=== PATIENT | male | born 1965 | race Caucasian/White ===

== ENCOUNTER 2017-09-22 13:24 | Emergency (ER) | payer BC ==
--- NOTE | 2017-09-22 14:27 | ED ---
Skin Complaint - HPI Summary HPI Summary: Patient is a 51-year-old male who presents emergency department for evaluation of insect bite to his right arm that occurred roughly one week ago. Patient states he was outside mowing the grass as well as [place] a walk in the [place] last week when he noticed redness and itching to his right arm. Matias, more red and irritating. Past medical history of diabetes, high cholesterol, hypertension. Patient is not aware of any tick bites recently. Symptoms are mild in severity. Denies associated symptoms of fever, joint pain. He states he has tried using topical Benadryl and hydrocortisone cream for itching with minimal relief. - History of Current Complaint Chief Complaint: EDRashSkinAbscess Time Seen by Provider: 09/22/17 13:44 Stated Complaint: RT ARM BUG BITE Hx Obtained From: Patient Pain Intensity: 0 - Allergy/Home Medications Allergies/Adverse Reactions: Allergies Allergy/AdvReac Type Severity Reaction Status Date / Time No Known Allergies Allergy Verified 09/22/17 13:29 PMH/Surg Hx/FS Hx/Imm Hx Previously Healthy: Yes Infectious Disease History: No Infectious Disease History: Denies: Traveled Outside the [place] in Last 30 Days - Social History Occupation: Employed Full-time Lives: With Family Review of Systems Constitutional: Negative Negative: Fever, Chills Positive: Other - Rash to right arm. All Other Systems Reviewed And Are Negative: Yes Physical Exam Triage Information Reviewed: Yes Vital Signs On Initial Exam: Initial Vitals Temp Pulse Resp BP Pulse Ox 96.7 F 74 16 141/94 97 09/22/17 13:30 09/22/17 13:30 09/22/17 13:30 09/22/17 13:30 09/22/17 13:30 Vital Signs Reviewed: Yes Appearance: Positive: Well-Appearing - Pt. sitting in chair in NAD. Skin: Positive: Warm, Dry, Other - Noted to the right antecubital region of arm there is a roughly 6-7 cm area diameter of erythema with central clearing. No fluctuance or induration. No skin necrosis. Musculoskeletal: Positive: Other - Full ROM of right elbow without pain or edema. No overlying erythema. Diagnostics - Vital Signs Vital Signs Temp Pulse Resp BP Pulse Ox 09/22/17 13:30 96.7 F 74 16 141/94 97 - Laboratory Lab Statement: Any lab studies that have been ordered have been reviewed, and results considered in the medical decision making process. Course/Dx - Course Course Of Treatment: Patient presenting with palpable saline secondary to insect bite. There is no abscess or induration. Patient is afebrile. There is central clearing to lesion. Lyme titer was drawn. Will treat with doxycycline. Advised patient to schedule a close follow-up appointment with his family doctor. To return to the ER for increased redness, swelling, fever or if concerned. Can take [id number] antihistamines for itching. Patient understands and agrees with plan. - Diagnoses Provider Diagnoses: Insect bite, Cellulitis Discharge - Sign-Out/Discharge Documenting (check all that apply): Discharge/Admit/Transfer - Discharge Plan Condition: Good Disposition: HOME Prescriptions: DOXYcycline CAP(*) [DOXYcycline 100MG CAP(*)] 100 mg PO BID #20 cap Patient Education Materials: Cellulitis (ED), Insect Bite or Sting (ED) Referrals: Sandra Lyon MD [Primary Care Provider] - Additional Instructions: Schedule a follow up appointment with PCP in 2-3 days Take antibiotic as directed Apply cool compresses Can take oral antihistamine for itching such as Zyrtec, Ruby Will call if Lyme test is positive Return to ER for increased redness, swelling, drainage, fever or if concerned - Billing Disposition and Condition Condition: GOOD Disposition: Home
[2017-09-22 14:41] VITALS: BP 139/95
== END 2017-09-22 14:41 | disposition home or self-care (01) ==
LOC: ED 13:24
DX: S40.861A Insect bite (nonvenomous) of right upper arm, initial encounter (principal); L03.113 Cellulitis of right upper limb; W57.XXXA Bitten or stung by nonvenomous insect and other nonvenomous arthropods, initial encounter
CPT/HCPCS: 86617; 99282

== ENCOUNTER 2018-11-16 18:04 | Emergency (ER) | payer BC, OTHER ==
[2018-11-16] MEDS ORDERED: Labetalol IV* 5 MG/ML 20 ML VIAL IV PUSH ONE (18:37)
--- NOTE | 2018-11-16 18:40 | ED ---
HPI Chest Pain - HPI Summary HPI Summary: 53-year-old male presents with chest pain today. He states he had this pain starting on left side of chest. States that radiates to his left shoulder. He describes it as an ache. No shortness breath. No cough. No recent illness. No abdominal pain. No nausea or vomiting. No diaphoresis. Has history of diabetes and high blood pressure. Took 4 aspirins of 325 mg today which helped with the pain. He also states that he had this pain on Sunday while he was at work. - History of Current Complaint Chief Complaint: EDChestWallPain Time Seen by Provider: 11/16/18 18:27 Pain Intensity: 6 - Allergy/Home Medications Allergies/Adverse Reactions: Allergies Allergy/AdvReac Type Severity Reaction Status Date / Time No Known Allergies Allergy Verified 09/22/17 13:29 Home Medications: Home Medications Aspirin 325 mg PO DAILY PRN 11/16/18 [History Confirmed 11/16/18] Atorvastatin* [Lipitor*] 20 mg PO QPM 11/16/18 [History Confirmed 11/16/18] Lisinopril 10 mg PO DAILY 11/16/18 [History Confirmed 11/16/18] Metformin HCl 500 mg PO BID 11/16/18 [History Confirmed 11/16/18] PMH/Surg Hx/FS Hx/Imm Hx Endocrine/Hematology History: Reports: Hx Diabetes Denies: Hx Anticoagulant Therapy Cardiovascular History: Reports: Hx Hypertension Infectious Disease History: No Infectious Disease History: Denies: Traveled Outside the [place] in Last 30 Days - Family History Known Family History: Positive: Hypertension - Social History Alcohol Use: Rare Substance Use Type: Reports: None Smoking Status (MU): Never Smoked Tobacco Review of Systems Negative: Fever Positive: Chest Pain. Negative: Palpitations Negative: Shortness Of Breath, Cough All Other Systems Reviewed And Are Negative: Yes Physical Exam Triage Information Reviewed: Yes Vital Signs On Initial Exam: Initial Vitals Temp Pulse Resp BP Pulse Ox 97.7 F 68 18 180/122 100 11/16/18 18:08 11/16/18 18:08 11/16/18 18:08 11/16/18 18:08 11/16/18 18:08 Vital Signs Reviewed: Yes Appearance: Positive: Well-Appearing Skin: Positive: Warm, Dry Head/Face: Positive: Normal Head/Face Inspection Eyes: Positive: Normal, Conjunctiva Clear ENT: Positive: Pharynx normal Respiratory/Lung Sounds: Positive: Clear to Auscultation, Breath Sounds Present , Other - tenderness chest wall Cardiovascular: Positive: Normal, RRR Abdomen Description: Positive: Nontender, Soft Bowel Sounds: Positive: Present Musculoskeletal: Positive: Normal Neurological: Positive: Normal Psychiatric: Positive: Normal Diagnostics - Vital Signs Vital Signs Temp Pulse Resp BP Pulse Ox 11/16/18 18:08 97.7 F 68 18 180/122 100 - Laboratory Result Diagrams: 11/16/18 18:38 11/16/18 18:38 Lab Statement: Any lab studies that have been ordered have been reviewed, and results considered in the medical decision making process. - EKG No standard instances Cardiac Rate: NL EKG Rhythm: Sinus Rhythm Summary of EKG Findings: sinus rhythm Re-Evaluation - Re-Evaluation First Eval Re-Evaluation Time: 19:54 Comment: blood pressure decreased but still has pain that describes as soreness and is reproducible. Second Eval Re-Evaluation Time: 22:08 Comment: states still having chest wall pain Chest Pain Course/Dx - Course Course Of Treatment: 53-year-old male presents with chest pain today. He states he had this pain starting on left side of chest. States that radiates to his left shoulder. He describes it as an ache. No shortness breath. No cough. No recent illness. No abdominal pain. No nausea or vomiting. No diaphoresis. Has history of diabetes and high blood pressure. Took 4 aspirins of 325 mg today which helped with the pain. He also states that he had this pain on Sunday while he was at work. On exam lungs CTA. Heart regular rhythm. Tenderness to palpation. EKG shows sinus rhythm. wbc normal. Troponin normalx2. d-dimer normal. gave nitro and bp dec but still have reproducible chest pain that describes as soreness. heart score 3. discussed needs to follow up with primary. as symptoms are reproducible and did not improve with nitro likely muscular in nature. told if develop any worsening symptoms to return. patient understand and agrees with plan. - Diagnoses Provider Diagnoses: Atypical chest pain Discharge - Sign-Out/Discharge Documenting (check all that apply): Patient Departure Patient Received Moderate/Deep Sedation with Procedure: No - Discharge Plan Condition: Good Disposition: HOME Patient Education Materials: Chest Pain (ED) Referrals: Sandra Lyon MD [Primary Care Provider] - Additional Instructions: follow up with primary within 5 days Take tyenlol every 6 hours as needed for pain Return to ED if develop worsening chest pain, shortness of breath, or any new or worsening symptoms - Billing Disposition and Condition Condition: GOOD Disposition: Home - Attestation Statements Provider Attestation: I am administratively signing this document. I was available for consultation for this patient. I did not evaluate the patient, did not have a doctor/patient relationship with the patient, or participate in any medical decision making or disposition decisions unless I am specifically named in the chart as having consulted on the patient. If I have consulted on the patient, please see my own ED note on the patient encounter. Shereen Rivas MD
[2018-11-16 18:51] LABS: ABS Basophils 0.1 10^3/ul (0-0.2); ABS Eosinophils 0.2 10^3/ul (0-0.6); ABS Lymphocytes 2.1 10^3/ul (1.0-4.8); ABS Monocytes 0.5 10^3/ul (0-0.8); Eosinophil % 2.3 %; Hematocrit 42 % (42-52); Hemoglobin 14.5 g/dL (14.0-18.0); Mean Corpuscular HGB Conc 35 g/dL (31-36); Mean Corpuscular Hemoglobin 32 pg (27-31); Mean Corpuscular Volume 91 fL (80-94); Mean Platelet Volume 7.5 fL (7.4-10.4); Nucleated Red Blood Cells % 0.1; Platelet Count 300 10^3/uL (150-450); Red Blood Count 4.56 10^6 /uL (4.18-5.48); Red Cell Distribution Width 13 % (10-15); White Blood Count 8.9 10^3/uL (3.5-10.8)
[2018-11-16 19:06] LABS: Albumin 4.7 g/dL (3.2-5.2); Albumin/Globulin Ratio 1.8 (1-3); BUN/Creatinine Ratio 20.7 (8-20); Calcium 8.9 mg/dL (8.6-10.3); EGFR African American 110.6 (>60); EGFR Non-African American 91.4 (>60); Globulin 2.6 g/dL (2-4); Potassium 4.1 mmol/L (3.5-5.0); Total Protein 7.3 g/dL (6.4-8.9)
[2018-11-16] MEDS ORDERED: Nitroglycerin TAB 0.4 MG* 0.4 MG TAB SL ONE (19:08)
[2018-11-16 22:22] VITALS: BP 136/92
== END 2018-11-16 22:20 | disposition home or self-care (01) ==
LOC: ED 18:04
DX: R07.89 Other chest pain (principal); E11.9 Type 2 diabetes mellitus without complications; I10 Essential (primary) hypertension; Z79.84 Long term (current) use of oral hypoglycemic drugs; Z79.82 Long term (current) use of aspirin; Z79.899 Other long term (current) drug therapy
CPT/HCPCS: 36415; 71045; 80053; 80329; 83605; 83880; 84484; 85025; 85379; 93005; 96374; 99283; A9270-GY; G0480

== ENCOUNTER 2019-02-01 16:58 | Emergency (ER) | payer OTHER ==
--- NOTE | 2019-02-01 17:16 | ED ---
Throat Pain/Nasal Congestion - HPI Summary HPI Summary: This patient is a 53 year old M with a history of type 2 DM presenting to ED with a chief complaint of sore throat since two days ago. Patient started feeling poorly with coughing since the beginning of December. Then, patient saw a nurse practitioner at [facility] and was given nasal steroids and Flonase. Patient reports he lost his voice a week later for three weeks. He went back and was prescribed Amoxicillin but still was not getting better. He was then prescribed Prednisone and doxycycline on 01/15/19 and he got his voice back about a week after that. Now, the patient is still coughing terribly and now has the sore throat. He reports nasal congestion. Patient does not smoke. He denies ear pain. The patient rates the pain 0/10 in severity. Symptoms aggravated by nothing. Symptoms alleviated by nothing. - History of Current Complaint Chief Complaint: EDUpperRespComplaint Time Seen by Provider: 02/01/19 17:07 Hx Obtained From: Patient Onset/Duration: Gradual Onset, Lasting Days - Since two days ago, Lasting Weeks - Coughing illness since beginning , Still Present Severity: Mild Associated Signs And Symptoms: Positive: Sinus Discomfort Cough: Nonproductive - Allergies/Home Medications Allergies/Adverse Reactions: Allergies Allergy/AdvReac Type Severity Reaction Status Date / Time No Known Allergies Allergy Verified 02/01/19 17:04 PMH/Surg Hx/FS Hx/Imm Hx Endocrine/Hematology History: Reports: Hx Diabetes Denies: Hx Anticoagulant Therapy Cardiovascular History: Reports: Hx Hypertension - Surgical History Surgery Procedure, Year, and Place: Denies Infectious Disease History: No Infectious Disease History: Denies: Traveled Outside the [place] in Last 30 Days - Family History Known Family History: Positive: Hypertension - Social History Alcohol Use: Rare Hx Substance Use: No Substance Use Type: Reports: None Hx Tobacco Use: No Smoking Status (MU): Never Smoked Tobacco Review of Systems ENT: Other - Nasal congestion Positive: Sore Throat. Negative: Ear Ache Positive: Cough All Other Systems Reviewed And Are Negative: Yes Physical Exam - Summary Physical Exam Summary: Appearance: The patient is well-nourished in no acute distress and in no acute pain. Skin: The skin is warm and dry, and skin color reflects adequate perfusion. HEENT: Mild pharyngeal edema, Neck: Mild anterior cervical lymphadenopathy Respiratory: Chest is non-tender. Lungs are clear to auscultation and breath sounds are symmetrical and equal. Cardiovascular: Heart is regular rate and rhythm. There is no murmur or rub auscultated. There is no peripheral edema and pulses are symmetrical and equal. Abdomen: The abdomen is soft and non-tender. There are normal bowel sounds heard in all four quadrants and there is no organomegaly palpated. Musculoskeletal: There is no back tenderness noted. Extremities are non-tender with full range of motion. There is good capillary refill. There is no peripheral edema or calf tenderness elicited. Neurological: Patient is alert and oriented to person, place and time. The patient has symmetrical motor strength in all four extremities. Cranial nerves are grossly intact. Deep tendon reflexes are symmetrical and equal in all four extremities. Psychiatric: The patient has an appropriate affect and does not exhibit any anxiety or depression. Triage Information Reviewed: Yes Vital Signs On Initial Exam: Initial Vitals Temp Pulse Resp BP Pulse Ox 96.8 F 76 14 132/92 99 02/01/19 17:00 02/01/19 17:00 02/01/19 17:00 02/01/19 17:00 02/01/19 17:00 Vital Signs Reviewed: Yes Procedures - Sedation Patient Received Moderate/Deep Sedation with Procedure: No Diagnostics - Vital Signs Vital Signs Temp Pulse Resp BP Pulse Ox 02/01/19 17:00 96.8 F 76 14 132/92 99 - Laboratory Lab Statement: Any lab studies that have been ordered have been reviewed, and results considered in the medical decision making process. Re-Evaluation - Re-Evaluation First Eval Re-Evaluation Time: 18:25 Comment: Discussed results with patient. Patient will be discharged home with dx of bronchitis. Patient understands and agrees with this plan. EENT Course/Dx - Course Course Of Treatment: Mr. Woodward complaining that he's been sick for a couple of months. The only thing that made him feel improved were steroids that he was given by his PCP. His workup here was negative and he is requesting an additional steroid burst. He followed his blood sugars closely on the previous burst and had no problems. - Diagnoses Provider Diagnoses: Bronchitis Discharge ED - Sign-Out/Discharge Documenting (check all that apply): Patient Departure - Discharge - Discharge Plan Condition: Stable Disposition: HOME Prescriptions: methylPREDNISolone [Medrol Dosepak 4 MG*] 0 mg PO .SEE CORBY INSTRUCTION #1 corby Patient Education Materials: Chronic Bronchitis (ED) Forms: *Work Release Referrals: Sandra Lyon MD [Primary Care Provider] - 3 Days Additional Instructions: Follow up with your primary care physician within 2-3 days. PLEASE RETURN TO THE ER FOR WORSENING OR CHANGING SYMPTOMS. - Billing Disposition and Condition Condition: STABLE Disposition: Home - Attestation Statements Document Initiated by Scribe: Yes Documenting Scribe: Oral Bonilla Provider For Whom Laurence is Documenting (Include Credential): Tremayne Figueroa MD Scribe Attestation: IOral, scribed for Tremayne Figueroa MD on 02/01/19 at 2112. Scribe Documentation Reviewed: Yes Provider Attestation: The documentation as recorded by the Oral loo accurately reflects the service I personally performed and the decisions made by me, Tremayne Figueroa MD Status of Scribe Document: Viewed
--- OUTSIDE RECORDS SUMMARY | 2019-02-01 17:23 | XMS REPORT | Summary of Care ---
:1965 Author Organization [facility] Address [address] [address] Care Team Providers Name Role Phone Sandra Lyon MD Primary Care Provider Reason for Visit Reason Comments Sick pt presents in office still sick, pt was seen on 12/30 and states he is feeling worse. Pt is now experiencing congestion in sinus' Encounter Details Date Type Department Care Team Description 01/02/2019 Office Visit [facility] Lorenzo, [facility] RADHA Tee rhinosinusitis (Primary [address]) [place] [address] [place] [address] [phone] Allergies No Known Allergiesdocumented as of this encounter (statuses as of 01/02/2019) Medications Medication Sig Dispensed Refills Start Date End Date Status Multiple Vitamin Take by mouth. 0 Active (MULTIVITAMINS PO) Lancets Does not apply 1 Each by Does 100 Each 5 09/07/2015 Active MiscIndications: not apply route Elevated blood sugar TWICE DAILY. Brand:per insurance Dx:250.00 non-Insulin dependent Test Blood Glucose 2 time(s) A DAY atorvastatin (LIPITOR) TAKE 1 TABLET BY 90 Tab 1 02/13/2018 Active 20 MG Oral MOUTH EVERY DAY TabIndications: Hyperlipidemia, unspecified hyperlipidemia type lisinopril (PRINIVIL, TAKE 1 TABLET BY 90 Tab 1 02/13/2018 Active ZESTRIL) 10 MG Oral Tab MOUTH EVERY DAY Glucose Blood 1 Strip by In 100 Strip 5 12/11/2018 Active (ACCU-CHEK MARTY PLUS) Vitro route TWICE In Vitro DAILY. StripIndications: Diabetes mellitus type 2 in nonobese ([facility]) metFORMIN (GLUCOPHAGE) TAKE 1 TABLET BY 180 Tab 1 12/17/2018 Active 500 MG Oral Tab MOUTH TWO TIMES DAILY fluticasone (FLONASE) Underwood 2 Sprays in 1 Bottle 2 12/30/2018 Active 50 MCG/ACT Nasal nose DAILY. SuspensionIndications: Acute URI guaiFENesin-codeine Take 10 mL by 100 mL 0 12/30/2018 Active (ROBITUSSIN AC) 100-10 mouth EVERY MG/5ML Oral BEDTIME. Max SolutionIndications: Daily Amount: 10 Acute URI mL. amoxicillin-clavulanic Take 1 Tab by 14 Tab 0 01/02/2019 Active acid (AUGMENTIN) mouth TWICE 875-125 MG Oral DAILY. TabIndications: Acute bacterial rhinosinusitis documented as of this encounter (statuses as of 01/02/2019) Active Problems Problem Noted Date Essential hypertension 09/12/2017 Diabetes mellitus type 2 in nonobese 10/20/2015 Hand pain, left 08/05/2013 Other chest pain 05/06/2010 Sinusitis, chronic 07/11/2007 Overview: Replaced inactive diagnosis documented as of this encounter (statuses as of 01/02/2019) Immunizations Name Administration Dates Next Due H1N1 Injectable Adult 04/06/2009 Influenza (IM) Preservative Free 05/02/2017, 02/07/2014, 03/25/2013, 01/29/2010 Influenza (IM) W/Pres 12/31/2015 Influenza Vaccine Whole 02/11/2009, 02/18/2008, 01/31/2007 Influenza Virus Vaccine Pres Free 6-35 01/29/2012, 02/03/2011 Months PNEUMOCOCCAL POLYSACCHARIDE VACCINE 12/12/2018 documented as of this encounter Social History Tobacco Use Types Packs/Day Years Used Date Never Smoker Smokeless Tobacco: Never Used Alcohol Use Drinks/Week oz/Week Comments No Sex Assigned at Date Recorded Not on file Job Start Date Occupation Industry Not on file Not on file Not on file Travel History Travel Start Travel End No recent travel history available. documented as of this encounter Last Filed Vital Signs Vital Sign Reading Time Taken Comments Blood Pressure 122/78 01/02/2019 8:59 AM EDT Pulse 74 01/02/2019 8:59 AM EDT Temperature 37 01/02/2019 8:59 AM EDT C (98.6 F) Respiratory Rate - - Oxygen Saturation 99% 01/02/2019 8:59 AM EDT Inhaled Oxygen Concentration - - Weight 81.8 kg (180 lb 6.4 oz) 01/02/2019 8:59 AM EDT Height 185.4 cm (6' 1") 01/02/2019 8:59 AM EDT Body Mass Index 23.8 01/02/2019 8:59 AM EDT documented in this encounter Patient Instructions Patient InstructionsNay Ventura NP - 01/02/2019 9:00 AM EDT 1) Augmentin 875mg twice daily for 7 days 1) Take Tylenol and Motrin over the counter as needed for pain and symptom relief 2) Flonase 2 sprays in each nostril daily 3) Robitussin with codeine to relieve the cough - take this at night to help you sleep/cough 4) Get plenty of rest and fluids 5) Please call or return if symptoms worsen or fail to improve You have been prescribed an antibiotic for treatment of your condition. It is important to rememberthat antibiotics treat bacterial infections. In order for them to be effective - you must take ALL of the medication and take it exactly as prescribed. FINISH THE MEDICATION - even if you are feelingbetter. Antibiotics can cause stomach upset and diarrhea. You can help decrease these symptoms by also taking a probiotic while using the medication (Align, Culturelle or the like). Take with food if recommended by the pharmacist. If you are not feeling better in 3-5 days - call or return to the office. 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 It can affect your nose, throat, ears,and sinuses. Common signs and symptoms include the following: Cold symptoms are usually worst for the first 3 to5 days. You may have any of the following: Runny or stuffy nose Sneezing and coughing Sore throat or hoarseness Red, watery, and sore eyes Fatigue Chills and fever Headache, body aches, or sore muscles Seek care immediately if: You have severe headaches, a stiff neck, or eye pain when you look at bright light. You have chest pain or trouble breathing. Contact your healthcare provider if: You have a fever over 102F (39C). Your sore throat gets worse or you see white or yellow spots in your throat. Your symptoms get worse after 3 to 5 days or your cold is not better in 14 days. You have a rash anywhere on your skin. You have large, tender lumps in your neck. You have thick, green or yellow drainage from your nose. You cough up thick yellow, green, rodriguez, or bloody mucus. You have vomiting for more than 24 hours and cannot keep fluids down. You have a bad earache. You have questions or concerns about your condition or care. Treatment for a cold: There is no cure for the common cold. Colds are caused by viruses and do not get better with antibiotics. Most people get better in 7 to 14 days. You may continue to cough for 2 to 3 weeks. The following may help decrease your symptoms: Decongestants help reduce nasal congestion and help you breathe more easily. If you take decongestant pills, they may make you feel restless or not able to sleep. Do not use decongestant sprays for more than a few days. Cough suppressants help reduce coughing. Ask your healthcare provider which type of cough medicine is best for you. NSAIDs , such as ibuprofen, help decrease swelling, pain, and fever. NSAIDs can cause stomach bleeding or kidney problems in certain people. If you take blood thinner medicine, always ask your healthcare provider if NSAIDs are safe for you. Always read the medicine label and follow directions. Acetaminophen decreases pain and fever. It is available without a doctor' s order. Ask how muchto take and how often to take it. Follow directions. Acetaminophen can cause liver damage if not taken correctly. Manage your cold: Use a humidifier or vaporizer. Use a cool mist humidifier or a vaporizer to increase air moisture in your home. This may make it easier for you to breathe and help decrease your cough. Gargle with warm salt water to help your sore throat feel better. Make salt water by adding teaspoon salt to 1 cup warm water. You may also suck on hard candy or throat lozenges. You may usea sore throat spray. Use saline nasal drops to help relieve your congestion. Drink liquids as directed. Liquids help keep your air passages moist and help you cough up mucus. Ask how much liquid to drink each day and which liquids are best for you. Rest as much as possible. Slowly start to do more each day. Prevent spreading your cold to others: Try to stay away from other people during the first 2 to 3 days of your cold when it is more easily spread. Do not share food or drinks. Do not share hand towels with household members. Wash your hands often, especially after you blow your nose. Turn away from other people and cover your mouth and nose with a tissue when you sneeze or cough. Follow up with your healthcare provider as directed: Write down your questions so you remember to ask them during your visits. 2016 [employer]. Information is for End User's use only and may not be sold, redistributed or otherwise used for commercial purposes. All illustrations and images included in CareNotes are the copyrighted property of [employer]. or [place]. The above information is an central supply aide only. It is not intended as medical advice for individual conditions or treatments. Talk to your doctor, nurse or pharmacist before following any medical regimen to see if it is safe and effective for you. documented in this encounter Progress Notes Nay Ventura NP - 01/02/2019 9:00 AM EDT PATIENT: Jairo Woodward : 1965 DATE OF SERVICE: 01/02/2019 CHIEF COMPLAINT: Chief Complaint Patient presents with Sick pt presents in office still sick, pt was seen on 12/30 and states he is feeling worse. Pt is now experiencing congestion in sinus' Subjective HISTORY OF PRESENT ILLNESS: Jairo Woodward is a 53-y.o. male. HPI Same symptoms as 3 days ago but getting worse, now voice hoarse and painful sinuses. Still no fevers. Robitussin-codeine did help him sleep. Using the flonase. Taking motrin with some relief. Sicksince 12/23 - now 10 days. Per last visit: The history is provided by the patient. This is a new problem. The current episode started in the past 7 days (Started 7 days ago). The problem occurs constantly. The problem has been gradually worsening. The cough is productive of sputum (yellow sputum). There has been no fever. There has been eye redness ( "burning") in his eyes. Associated symptoms include chest pain ("irritation"), rhinorrhea, sore throat ("from coughing") and eye redness ("burning"). Pertinent negatives include no chills, no sweats, no weight loss, no ear congestion, no ear pain, no headaches, no myalgias, no shortness of breath and no wheezing. Treatments tried: mucinex, otc tylenol cold - helps temporarily. He is not a smoker. His past medical history does not include bronchitis, pneumonia, bronchiectasis, COPD, emphysema or asthma. Travel to [place] 3 weeks ago - denies leg swelling or shortness of breath, some redness in sputum last night, but otherwise no blood in sputum, just yellow. Past Medical History: Diagnosis Date Anxiety Hyperlipidemia Lactose intolerance Seasonal allergies Family History Problem Relation Age of Onset Allergies Mother Heart Father arrhythmia/pacer Arrythmia Father Alzheimer's Disease Father Lewy body Diabetes Maternal Grandmother Current Outpatient Medications Medication Sig amoxicillin-clavulanic acid (AUGMENTIN) 875-125 MG Oral Tab Take 1 Tab by mouth TWICE DAILY. atorvastatin (LIPITOR) 20 MG Oral Tab TAKE 1 TABLET BY MOUTH EVERY DAY fluticasone (FLONASE) 50 MCG/ACT Nasal Suspension Underwood 2 Sprays in nose DAILY. Glucose Blood (ACCU-CHEK MARTY PLUS) In Vitro Strip 1 Strip by In Vitro route TWICE DAILY. guaiFENesin-codeine (ROBITUSSIN AC) 100-10 MG/5ML Oral Solution Take 10 mL by mouth EVERY BEDTIME. Max Daily Amount: 10 mL. Lancets Does not apply Misc 1 Each by Does not apply route TWICE DAILY. Brand:per insurance Dx:250.00 non-Insulin dependent Test Blood Glucose 2 time (s) A DAY lisinopril (PRINIVIL, ZESTRIL) 10 MG Oral Tab TAKE 1 TABLET BY MOUTH EVERY DAY metFORMIN (GLUCOPHAGE) 500 MG Oral Tab TAKE 1 TABLET BY MOUTH TWO TIMES DAILY Multiple Vitamin (MULTIVITAMINS PO) Take by mouth. No current facility-administered medications for this visit. No Known Allergies Social History Socioeconomic History Marital status: Spouse name: Not on file Number of children: Not on file Years of education: Not on file Highest education level: Not on file Occupational History Not on file Social Needs Financial resource strain: Not on file Food insecurity: Worry: Not on file Inability: Not on file Transportation needs: Medical: Not on file Non-medical: Not on file Tobacco Use Smoking status: Never Smoker Smokeless tobacco: Never Used Substance and Sexual Activity Alcohol use: No Drug use: No Sexual activity: Yes Partners: Female Lifestyle Physical activity: Days per week: Not on file Minutes per session: Not on file Stress: Not on file Relationships Social connections: Talks on phone: Not on file Gets together: Not on file Attends muslim service: Not on file Active member of club or organization: Not on file Attends meetings of clubs or organizations: Not on file Relationship status: Not on file Intimate partner violence: Fear of current or ex partner: Not on file Emotionally abused: Not on file Physically abused: Not on file Forced sexual activity: Not on file Other Topics Concern Back Care Not Asked Bike Helmet Not Asked Blood Transfusions Not Asked Caffeine Concern Not Asked Comment: Exercise Not Asked Comment: Hobby Hazards Not Asked International Travel Not Asked Service Not Asked Occupational Exposure Not Asked Comment: Seat Belt Not Asked Self-Exams Not Asked Sleep Concern Not Asked Special Diet Not Asked Stress Concern Not Asked Weight Concern Not Asked Social History Narrative Not on file REVIEW OF SYSTEMS: Review of Systems Constitutional: Positive for malaise/fatigue. Negative for chills and fever. HENT: Positive for congestion, sinus pain and sore throat. Negative for ear pain and hearing loss. Eyes: Positive for pain. Respiratory: Positive for cough and sputum production. Negative for shortness of breath. Cardiovascular: Negative for chest pain and palpitations. Gastrointestinal: Negative for abdominal pain, nausea and vomiting. Musculoskeletal: Negative for joint pain and myalgias. Neurological: Negative for dizziness and headaches. Objective PHYSICAL EXAM: VITALS: BP 122/78 (BP Location: Left arm, Patient Position: Sitting) | Pulse 74 | Temp 98.6 F(37 C) (Tympanic) | Ht 6' 1" (1.854 m) | Wt 180 lb 6.4 oz (81.8 kg) | SpO2 99% | BMI 23.80 kg/m Body mass index is 23.8 kg/ m. Physical Exam Constitutional: Vital signs are normal. He appears well-developed and well- nourished. Non-toxic appearance. No distress. HENT: Right Ear: Tympanic membrane, external ear and ear canal normal. No mastoid tenderness. Tympanic membrane is not erythematous, not retracted and not bulging. Left Ear: Tympanic membrane, external ear and ear canal normal. No mastoid tenderness. Tympanic membrane is not erythematous, not retracted and not bulging. Nose: Mucosal edema and rhinorrhea present. Right sinus exhibits maxillary sinus tenderness and frontal sinus tenderness. Left sinus exhibits maxillary sinus tenderness and frontal sinus tenderness. Mouth/Throat: Uvula is midline and mucous membranes are normal. Posterior oropharyngeal erythema present. No tonsillar exudate. Eyes: Conjunctivae are normal. Cardiovascular: Normal rate, regular rhythm and normal heart sounds. Pulmonary/Chest: Effort normal and breath sounds normal. Lymphadenopathy: Head (right side): Submandibular adenopathy present. No submental and no tonsillar adenopathy present. Head (left side): No submental, no submandibular and no tonsillar adenopathy present. He has no cervical adenopathy. Right cervical: No superficial cervical adenopathy present. Left cervical: No superficial cervical adenopathy present. Right: No supraclavicular adenopathy present. Left: No supraclavicular adenopathy present. Neurological: He is alert. Nursing note and vitals reviewed. ASSESSMENT / IMPRESSION: ICD-9-CM ICD-10-CM 1. Acute bacterial rhinosinusitis 461.9 J01.90 amoxicillin-clavulanic acid ( AUGMENTIN) 875-125 MG Oral Tab B96.89 Plan 1. Acute bacterial rhinosinusitis - amoxicillin-clavulanic acid (AUGMENTIN) 875-125 MG Oral Tab; Take 1 Tab by mouth TWICE DAILY. Dispense: 14 Tab; Refill: 0 Continue symptomatic treatment, add antibiotic. 1) Augmentin 875mg twice daily for 7 days 1) Take Tylenol and Motrin over the counter as needed for pain and symptom relief 2) Flonase 2 sprays in each nostril daily 3) Robitussin with codeine to relieve the cough - take this at night to help you sleep/cough 4) Get plenty of rest and fluids 5) Please call or return if symptoms worsen or fail to improve You have been prescribed an antibiotic for treatment of your condition. It is important to rememberthat antibiotics treat bacterial infections. In order for them to be effective - you must take ALL of the medication and take it exactly as prescribed. FINISH THE MEDICATION - even if you are feelingbetter. Antibiotics can cause stomach upset and diarrhea. You can help decrease these symptoms by also taking a probiotic while using the medication (Align, Culturelle or the like). Take with food if recommended by the pharmacist. If you are not feeling better in 3-5 days - call or return to the office. Author: Nay Ventura NP 01/02/2019 10:31 documented in this encounter Plan of Treatment Health Maintenance Due Date Last Done Comments COLONOSCOPY SCREENING 2014 ZOSTER IMMUNIZATION SERIES 2014 (1 of 2) Diabetic Eye Exam 11/09/2016 11/10/2015 INFLUENZA VACCINE (#1) 2018 05/02/2017, 12/31/2015, 02/07/2014, Additional history exists HEMOGLOBIN A1C 06/20/2019 12/20/2018, 03/25/2018, 09/24/2017, Additional history exists DEPRESSION SCREENING 12/12/2019 12/11/2018 FOOT EXAM 12/12/2019 12/11/2018, 12/11/2018, 09/20/2015 LIPID DISORDER SCREENING 12/21/2019 12/20/2018, 03/25/2018, 02/13/2018, Additional history exists PNEUMOCOCCAL 0-64 YRS Completed 12/12/2018 HPV IMMUNIZATION SERIES Aged Out No longer eligible based on patient's age to complete this topic MENINGOCOCCAL VACCINE IMM Aged Out No longer eligible based on patient's age to complete this topic documented as of this encounter Goals Goal Patient Goal Associated Recent Patient-Stated? Author Type Problems Progress Blood Pressure Blood Pressure 122/78 No Camron, < 140/90 (01/02/2019 Sandra, 8:59 AM EDT) Note: This is an individualized treatment (blood pressure) goal for Jairo Woodward: Displayed above (on the left) is your goal for blood pressure control. Your most recent blood pressure is also shown above, on the right. You should try to achieve blood pressures that are lower than your goal listed above (on the left). Lifestyle < 7.0 Diabetes Diabetes mellitus 5.2 (12/20/2018 Sabine Lyon, type 2 in nonobese 8:19 AM EDT) MD Sandra Note: Diabetes Care Plan According to current 2014 ADA guidelines the patient A1C goal is less than 7. The patient's last A1C was Lab Results Component Value Date GLYCOHEMOGLOBIN A1C 4.9 12/21/2015 The patient is:at goal . As your provider, it is important that I advise you regarding: your current medications and help you with any challenges you may face taking your medications as directed (ex. instructions, cost, side effects, and interactions). Important lifestyle changes:exercise and diet your clinical goals and how you can achieve success:exercise plan medication management: adjusted medications as appropriate patient education/self-management tools provided: Yes To successfully manage my Diabetes I will: have lab work every six months if my previous A1c was 7 or less. If my results were greater than 7, I will have lab work every three months. My goal is to control my diabetes by keeping A1c below 7.0 take medications every day as prescribed by my healthcare provider and if unable to take them I will discuss with my provider. exercise/walk 30 minutes 5 day(s) per week. If I experience chest pain, chest tightness, or shortness of breath, I will seek medical attention immediately. check feet daily. If sores or irritation are noticed, will seek medical attention. follow a low carbohydrate and low fat diet. My goal is an LDL (bad cholesterol) number less than 100 when I have my routine lab work. check blood sugar as instructed and will call my healthcare provider if the results are consistently below 70 or above 300. I will monitor for symptoms of low blood sugar (feeling faint, dizzy, lig htheaded, jittery, sweaty, or hungry), if symptoms are noticed, I will eat or drink something (glucose tabs, orange juice, candy) to help raise sugar. record my blood sugar results (including dextrose sticks). Lionel is safe and secure way for you to do this in your medical record online. try to obtain an ideal body weight. My recent weight was Weight: 187 lb ( 84.8 kg). My weight loss goal for my next office visit is 180. to prevent kidney problems common to people with diabetes I will complete a yearly Microalbumin to check for protein in urine. I will talk with my healthcare provider about medications to prevent diabetic renal disease. to prevent diabetic retinopathy I will see an eye doctor yearly. A yearly dilated eye exam helps prevent blindness. if currently smoking, will discuss how to quit smoking with my healthcare provider and work towards quitting. Glycohemoglobin A1c < 7.0 Diabetes 5.2 (12/20/2018 8:19 No Sandra Lyon AM EDTGregory IBARRA Note: This is an individualized treatment (diabetes control, HgbA1C) goal for Jairo Woodward: Displayed above is your progress towards your HgbA1C goal. Your goal is shown above (on the left); your most recent HgbA1C is shown on the right. Note that lower numbers are better. Keep immunizations current Lifestyle No Sandra Lyon MD Note: This is an individualized lifestyle goal for Jairo Woodward: Please be sure to keep up-to-date on recommended immunizations. For example, this would include a yearly influenza vaccine. Immunization status can be seen by looking at the Health Maintenance sections of your e[facility], Plan of Care, and any After Visit Summaries. Take all prescribed medications as Self-management No Sandra Lyon MD directed Note: This is an individualized self-management goal for Jairo Woodward: Please take all prescribed medications as directed. 1. Do not skip doses. If you cannot afford your medications, talk with your doctor. 2. Use a pill reminder system such as a pill box if needed. Your pharmacist can help you with this. 3. Contact your Pharmacy 5 days before your medication runs out. If you cannot take your medications for any reasons, talk with your doctor. 4. Please bring all of your medication bottles and inhalers (or a list of all your medications/inhalers) with you to every visit. Potential barriers to meeting all of your care plan goals will continue to be addressed on an ongoing basis. documented as of this encounter Results Not on filedocumented in this encounter Visit Diagnoses Diagnosis Acute bacterial rhinosinusitis - Primary documented in this encounter Insurance Payer Benefit Plan / Subscriber ID Effective Dates Phone Address Type Group [employer] AETMELANIE BABIN xxxxxxxxxx 2018-Present [employer] [address] (Home) [address] [phone] [place], [place] (Work) [id number] documented as of this encounter
--- OUTSIDE RECORDS SUMMARY | 2019-02-01 17:23 | XMS REPORT | Summary of Care ---
:1965 Author Organization [facility] Address [address] [address] Care Team Providers Name Role Phone Sandra Lyon MD Primary Care Provider Reason for Visit Reason Comments Sore Throat sore throat, chest congestion, loss of voice x1 week, coughing up yellow mucus. Pt has been taking OTC musinex and tylenol cold Encounter Details Date Type Department Care Team Description 12/30/2018 Office Visit [place] [facility], Acute URI ( Primary Dx) Practice [facility] [employer] [address] [place] [address] [place] [address] [phone] Allergies No Known Allergiesdocumented as of this encounter (statuses as of 12/30/2018) Medications Medication Sig Dispensed Refills Start Date End Date Status Multiple Vitamin Take by 0 Active (MULTIVITAMINS PO) mouth. Lancets Does not 1 Each by Does 100 Each 5 09/07/2015 Active apply not apply MiscIndications: route TWICE Elevated blood DAILY. sugar Brand:per insurance Dx:250.00 non-Insulin dependent Test Blood Glucose 2 time(s) A DAY atorvastatin TAKE 1 TABLET 90 Tab 1 02/13/2018 Active (LIPITOR) 20 MG BY MOUTH EVERY Oral DAY TabIndications: Hyperlipidemia, unspecified hyperlipidemia type lisinopril TAKE 1 TABLET 90 Tab 1 02/13/2018 Active (PRINIVIL, ZESTRIL) BY MOUTH EVERY 10 MG Oral Tab DAY Glucose Blood 1 Strip by In 100 Strip 5 12/11/2018 Active (ACCU-CHEK MARTY Vitro route PLUS) In Vitro TWICE DAILY. StripIndications: Diabetes mellitus type 2 in nonobese (HCC) metFORMIN TAKE 1 TABLET 180 Tab 1 12/17/2018 Active (GLUCOPHAGE) 500 MG BY MOUTH TWO Oral Tab TIMES DAILY fluticasone [place] 2 Sprays 1 Bottle 2 12/30/2018 Active (FLONASE) 50 in nose DAILY. MCG/ACT Nasal SuspensionIndicatio ns: Acute URI guaiFENesin-codeine Take 10 mL by 100 mL 0 12/30/2018 Active (ROBITUSSIN AC) mouth EVERY 100-10 MG/5ML Oral BEDTIME. Max SolutionIndications Daily Amount: : Acute URI 10 mL. fluticasone [place] 2 Sprays 1 Bottle 2 10/20/2015 12/31/19 Discontinued (FLONASE) 50 in nose DAILY. 19 (Reorder) MCG/ACT Nasal Suspension documented as of this encounter (statuses as of 12/30/2018) Active Problems Problem Noted Date Essential hypertension 09/12/2017 Diabetes mellitus type 2 in nonobese 10/20/2015 Hand pain, left 08/05/2013 Other chest pain 05/06/2010 Sinusitis, chronic 07/11/2007 Overview: Replaced inactive diagnosis documented as of this encounter (statuses as of 12/30/2018) Immunizations Name Administration Dates Next Due H1N1 [...] Sign Reading Time Taken Comments Blood Pressure 118/74 12/30/2018 2:27 PM EDT Pulse 84 12/30/2018 2:27 PM EDT Temperature 36 12/30/2018 2:27 PM EDT C (96.8 F) Respiratory Rate - - Oxygen Saturation 97% 12/30/2018 2:27 PM EDT Inhaled Oxygen Concentration - - Weight 80.7 kg (178 lb) 12/30/2018 2:27 PM EDT Height 185.4 cm (6' 1") 12/30/2018 2:27 PM EDT Body Mass Index 23.48 12/30/2018 2:27 PM EDT documented in this encounter Patient Instructions Patient InstructionsNay Ventura NP - 12/30/2018 2:20 PM EDT 1) Take Tylenol and Motrin over the counter as needed for pain and symptom relief 2) Flonase 2 sprays in each nostril daily 3) Robitussin with codeine - 10 ml at bedtime as needed for cough. This medication will make you sleepy - do not drink, drive or operate machinery. 4) Get plenty of rest and fluids 5) Please call or return if symptoms worsen or fail to improve Upper Respiratory Infection LITERACY SPECIALIST: An upper respiratory infection is also called [...] to ask them during your visits. 2016 [employer]. Information is for End User's use only and may not be sold, redistributed or otherwise used for commercial purposes. All illustrations and images included in CareNotes are the copyrighted property of [employer]. or [employer]. The above information is an preparole counseling aide only. It is not intended as medical advice for individual conditions or treatments. Talk to your doctor, nurse or pharmacist before following any medical regimen to see if it is safe and effective for you. documented in this encounter Progress Notes Nay Ventura NP - 12/30/2018 2:20 PM EDT PATIENT: Jairo Woodward : 1965 DATE OF SERVICE: 12/30/2018 CHIEF COMPLAINT: Chief Complaint Patient presents with Sore Throat sore throat, chest congestion, loss of voice x1 week, coughing up yellow mucus. Pt has been takingOTC musinex and tylenol cold Subjective HISTORY OF PRESENT ILLNESS: Jairo Woodward is a 53-y.o. male. Cough The history is provided by the patient. [...] bronchiectasis, COPD, emphysema or asthma. Travel to [place] 3 weeks ago - denies leg swelling or shortness of breath, some redness in sputum last night, but otherwise no blood in sputum, just yellow. Past Medical History: Diagnosis Date Anxiety Hyperlipidemia Lactose intolerance Seasonal allergies Family History Problem Relation Age of Onset Allergies Mother Heart Father arrhythmia/pacer Arrythmia Father Alzheimer's Disease Father Lewy body Diabetes Maternal Grandmother Current Outpatient Medications Medication Sig atorvastatin (LIPITOR) 20 MG Oral Tab TAKE 1 TABLET BY MOUTH EVERY DAY fluticasone (FLONASE) 50 MCG/ACT Nasal Suspension [place] 2 Sprays in nose DAILY. Glucose Blood [...] file Gets together: Not on file Attends oriental orthodox service: Not on file Active member of [...] Systems Constitutional: Positive for malaise/fatigue. Negative for chills, fever and weight loss. HENT: Positive for congestion, rhinorrhea, sinus pain and sore throat ("from coughing"). Negative for ear discharge, ear pain and nosebleeds. Eyes: Positive for redness ("burning"). Respiratory: Positive for cough and sputum production (yellow). Negative for shortness of breath andwheezing. Cardiovascular: Positive for chest pain ("irritation"). Negative for palpitations and leg swelling. Gastrointestinal: Negative for abdominal pain, constipation, diarrhea, nausea and vomiting. Genitourinary: Negative for dysuria, frequency and urgency. Musculoskeletal: Negative for joint pain, myalgias and neck pain. Neurological: Negative for headaches. Objective PHYSICAL EXAM: VITALS: BP 118/74 (BP Location: Left arm, Patient Position: Sitting) | Pulse 84 | Temp 96.8 F(36 C) (Tympanic) | Ht 6' 1" (1.854 m) | Wt 178 lb ( 80.7 kg) | SpO2 97% | BMI 23.48 kg/m Body mass index is 23.48 kg/m. Physical Exam Constitutional: Vital signs are normal. He appears well-developed and well- nourished. Non-toxic appearance. No distress. HENT: Right Ear: External ear and ear canal normal. No mastoid tenderness. Tympanic membrane is bulging. Tympanic membrane is not erythematous and not retracted. Left Ear: Tympanic membrane, external ear and ear canal normal. No mastoid tenderness. Tympanic membrane is not erythematous, not retracted and not bulging. Nose: Mucosal edema (and erythema) and rhinorrhea present. Right sinus exhibits no maxillary sinus tenderness and no frontal sinus tenderness. Left sinus exhibits no maxillary sinus tenderness and no frontal sinus tenderness. Mouth/Throat: Uvula is midline and mucous membranes are normal. Posterior oropharyngeal erythema present. Tonsils are 2+ on the right. Tonsils are 2+ on the left. No tonsillar exudate. Eyes: Conjunctivae are normal. Cardiovascular: Normal rate, regular rhythm and normal heart sounds. Pulmonary/Chest: Effort normal and breath sounds normal. No respiratory distress. He has no wheezes.He has no rhonchi. He has no rales. Lymphadenopathy: Head (right side): No submental, no submandibular and no tonsillar adenopathy present. Head (left side): No submental, no submandibular and no tonsillar adenopathy present. He has no cervical adenopathy. Right cervical: No superficial cervical adenopathy present. Left cervical: No superficial cervical adenopathy present. Right: No supraclavicular adenopathy present. Left: No supraclavicular adenopathy present. Neurological: He is alert. Nursing note and vitals reviewed. Wells Score 1.5 ASSESSMENT / IMPRESSION: ICD-9-CM ICD-10-CM 1. Acute URI 465.9 J06.9 fluticasone (FLONASE) 50 MCG/ACT Nasal Suspension guaiFENesin-codeine (ROBITUSSIN AC) 100-10 MG/5ML Oral Solution Plan 1. Acute URI -Likely viral, sx's less than 10 days. -Recent travel but no leg swelling or other concerning sx's, more likely cough due to post nasal drip. Wells score 1.5 (low risk) - fluticasone (FLONASE) 50 MCG/ACT Nasal Suspension; [place] 2 Sprays in nose DAILY. Dispense: 1 Bottle; Refill: 2 - guaiFENesin-codeine (ROBITUSSIN AC) 100-10 MG/5ML Oral Solution; Take 10 mL by mouth EVERY BEDTIME. Max Daily Amount: 10 mL. Dispense: 100 mL; Refill: 0 -1) Take Tylenol and Motrin over the counter as needed for pain and symptom relief 2) Flonase 2 sprays in each nostril daily 3) Robitussin with codeine - 10 ml at bedtime as needed for cough. This medication will make you sleepy - do not drink, drive or operate machinery. 4) Get plenty of rest and fluids 5) Please call or return if symptoms worsen or fail to improve Author: Nay Ventura NP 12/30/2018 14:56 documented in this encounter Plan of Treatment [...] Type Problems Progress Blood Pressure Blood Pressure 118/74 No Camron, < 140/90 (12/30/2018 Sandra, 2:27 PM EDT) Note: This is an individualized treatment [...] my blood sugar results (including dextrose sticks). [employer] is safe and secure way for you [...] in this encounter Visit Diagnoses Diagnosis Acute URI - Primary Acute upper respiratory infections of unspecified site documented in this encounter Insurance Payer Benefit Plan / Subscriber ID Effective Dates Phone Address Type Group A[employer]NA COMMERCIAL AETNA OLAF xxxxxxxxxx 2018-Present [employer] [facility] Guarantor Name Account Type Relation to Date of Phone Billing Address Patient Jairo Woodward Personal/Famil 1965 [address] (Home) [address] [phone] [place], [place] (Work) [address] documented as of this encounter
--- OUTSIDE RECORDS SUMMARY | 2019-02-01 17:23 | XMS REPORT | Summary of Care ---
:1965 Author Organization [facility] Address [address] [address] Care Team Providers Name Role Phone Sandra Lyon MD Primary Care Provider Reason for Referral Diagnostic Testing (Routine) Status Reason Specialty Diagnoses / Referred By Referred To Procedures Contact Contact Pending Review Diagnoses Other chest pain Camron, Procedures STRESS ECHO W/O ST INTERP MD Sandra [address] [place] [address] Reason for Visit Reason Comments Follow Up was at er for HTN Encounter Details Date Type Department Care Team Description 12/11/2018 Office Visit [facility], Diabetes mellitus type 2 in nonobese (HCC) (Primary Dx); Practice MD Sandra Other chest pain [address] [place] [address] [place] [address] [phone] Allergies No Known Allergiesdocumented as of this encounter (statuses as of 12/11/2018) Medications Medication Sig Dispensed Refills Start Date End Date Status Multiple Vitamin Take by 0 Active (MULTIVITAMINS PO) mouth. Lancets Does not 1 Each by Does 100 Each 5 09/07/2015 Active apply not apply MiscIndications: route TWICE Elevated blood DAILY. sugar Brand:per insurance Dx:250.00 non-Insulin dependent Test Blood Glucose 2 time(s) A DAY fluticasone [place] 2 Sprays 1 Bottle 2 10/20/2015 Active (FLONASE) 50 in nose DAILY. MCG/ACT Nasal Suspension metFORMIN TAKE 1 TABLET 180 Tab 1 02/04/2018 Active (GLUCOPHAGE) 500 MG BY MOUTH TWO Oral Tab TIMES DAILY atorvastatin TAKE 1 TABLET 90 Tab 1 [...] Diabetes mellitus type 2 in nonobese (HCC) Glucose Blood 1 Strip by In 100 Strip 5 09/07/2015 12/12/19 Discontinued (ACCU-CHEK MARTY Vitro route 19 (Reorder) PLUS) In Vitro TWICE DAILY. StripIndications: Elevated blood sugar documented as of this encounter (statuses as of 12/11/2018) Active Problems Problem Noted Date Essential hypertension 09/12/2017 Diabetes mellitus type 2 in nonobese 10/20/2015 Hand pain, left 08/05/2013 Other chest pain 05/06/2010 Sinusitis, chronic 07/11/2007 Overview: Replaced inactive diagnosis documented as of this encounter (statuses as of 12/11/2018) Immunizations Name Administration Dates Next Due H1N1 Injectable Adult 04/06/2009 Influenza (IM) Preservative Free 05/02/2017, 02/07/2014, 03/25/2013, 01/29/2010 Influenza (IM) W/Pres 12/31/2015 Influenza Vaccine Whole 02/11/2009, 02/18/2008, 01/31/2007 Influenza Virus Vaccine Pres Free 01/29/2012, 02/03/2011 6-35 Months documented as of this encounter Social History [...] Sign Reading Time Taken Comments Blood Pressure 102/70 12/11/2018 3:49 PM EDT Pulse 73 12/11/2018 3:49 PM EDT Temperature 36.6 12/11/2018 3:49 PM EDT C (97.9 F) Respiratory Rate - - Oxygen Saturation 98% 12/11/2018 3:49 PM EDT Inhaled Oxygen Concentration - - Weight 82.6 kg (182 lb 3.2 oz) 12/11/2018 3:49 PM EDT Height 185.4 cm (6' 1") 12/11/2018 3:49 PM EDT Body Mass Index 24.04 12/11/2018 3:49 PM EDT documented in this encounter Patient Instructions Patient InstructionsSandra Lyon MD - 12/11/2018 3:40 PM EDT1. Schedule fasting blood tests 2. Schedule stress test 3. Schedule appointment with an eye doctor 4. Follow up after the tests and as needed documented in this encounter Progress Notes Sandra Lyon MD - 12/11/2018 3:40 PM EDT Patient: Jairo Woodward Date of Service: 12/11/2018 Subjective: Jairo Woodward is a 53-y.o. male who presents for Chief Complaint Patient presents with Follow Up was at er for HTN Diabetic Review of Systems - medication compliance: compliant all of the time, diabetic diet compliance: compliant most of the time, home glucose monitoring: is performed sporadically, values are usually normal, further diabetic ROS: no numbness, tingling or pain in extremities, last eye exam approximately 2 years ago. Se[place] [facility] [place] with complains of non exertional chest pain with radiation to the L arm/L shoulder Evaluation at the ER showed NL EKG, negative Troponin, D dimer Patient hasn't had chest pains sine. Recently traveled to [place]. Developed some lightheadedness while [place] a [place] Past Medical History: Diagnosis Date Anxiety Hyperlipidemia Lactose intolerance Seasonal allergies Outpatient Medications as of 12/11/2018 Medication Sig Dispense Refill atorvastatin (LIPITOR) 20 MG Oral Tab TAKE 1 TABLET BY MOUTH EVERY DAY 90 Tab 1 fluticasone (FLONASE) 50 MCG/ACT Nasal Suspension [place] 2 Sprays in nose DAILY. 1 Bottle 2 Lancets Does not apply Misc 1 Each by Does not apply route TWICE DAILY. Brand:per insurance Dx:250.00 non-Insulin dependent Test Blood Glucose 2 time (s) A DAY 100 Each 5 lisinopril (PRINIVIL, ZESTRIL) 10 MG Oral Tab TAKE 1 TABLET BY MOUTH EVERY DAY 90 Tab 1 metFORMIN (GLUCOPHAGE) 500 MG Oral Tab TAKE 1 TABLET BY MOUTH TWO TIMES DAILY 180 Tab 1 Multiple Vitamin (MULTIVITAMINS PO) Take by mouth. No current facility-administered medications on file as of 12/11/2018. No Known Allergies Review of Systems: All remaining review of systems was negative. Objective: BP 102/70 (BP Location: Left arm, Patient Position: Sitting) Pulse 73 Temp 97.9 F (36.6 C) Ht 6' 1" (1.854 m) Wt 182 lb 3.2 oz (82.6 kg) SpO2 98 % BMI 24.04 kg/m2 GENERAL: alert, no distress THROAT: lips, mucosa, and tongue normal: teeth and gums normal NECK: supple, symmetrical, trachea midline and no adenopathy LUNGS: clear to auscultation bilaterally CHEST WALL: no tenderness HEART: regular rate and rhythm, S1, S2 normal, no murmur, click, rub or gallop EXTREMITIES: no edema. Examination of the feet reveals warm, good capillary refill, normal DP and PT pulses and normal sensory exam. ICD-9-CM ICD-10-CM 1. Diabetes mellitus type 2 in non obese (HCC) 250.00 E11.9 Glucose Blood (ACCU- CHEK MARTY PLUS) In Vitro Strip MICROALBUMIN, RANDOM URINE W/ CREATININE MICROALBUMIN, RANDOM URINE W/ CREATININE 2. Other chest pain 786.59 R07.89 AMBULATORY 12 LEAD EKG (GLOBAL) STRESS ECHO W/O ST INTERP Patient Instructions 1. Schedule fasting blood tests 2. Schedule stress test 3. Schedule appointment with an eye doctor 4. Follow up after the tests and as needed Author: Sandra Lyon MD documented in this encounter Plan of Treatment Date Type Specialty Care Team Description 12/20/2018 Lab Internal Medicine Name Type Priority Associated Diagnoses Order Schedule AMBULATORY 12 LEAD EKG EKG Routine Other chest pain Ordered: 12/11/2018 (GLOBAL) STRESS ECHO W/O ST CV Lab Routine Other chest pain Expected: 12/11/2018, INTERP Expires: 01/15/2020 MICROALBUMIN, RANDOM Lab Routine Diabetes mellitus type 2 Expected: 2018 URINE W/ CREATININE in nonobese (HCC) (Approximate), Expires: 06/09/2019 Health Maintenance Due Date Last Done Comments PNEUMOCOCCAL 0-64 YRS (1 of 1970 1 - PPSV23) COLONOSCOPY SCREENING 2014 ZOSTER IMMUNIZATION SERIES 2014 (1 of 2) Diabetic Eye Exam 11/09/2016 11/10/2015 HEMOGLOBIN A1C 09/23/2018 03/25/2018, 09/24/2017, 01/05/2017, Additional history exists INFLUENZA VACCINE (#1) 2018 05/02/2017, 12/31/2015, 02/07/2014, Additional history exists LIPID DISORDER SCREENING 03/25/2019 03/25/2018, 02/13/2018, 09/24/2017, Additional history exists DEPRESSION SCREENING 12/12/2019 12/11/2018 FOOT EXAM 12/12/2019 12/11/2018, 09/20/2015 HPV IMMUNIZATION SERIES Aged Out No longer eligible based on patient's age to complete this topic MENINGOCOCCAL VACCINE IMM Aged Out No longer eligible based on patient's age to complete this topic documented as of this encounter Goals Goal Patient Goal Associated Recent Patient-Stated? Author Type Problems Progress Blood Pressure Blood Pressure 102/70 No Camron, < 140/90 (12/11/2018 Sandra, 3:49 PM EDT) Note: This is an individualized treatment (blood pressure) goal for Jairo Woodward: Displayed above (on the left) is your goal for blood pressure control. Your most recent blood pressure is also shown above, on the right. You should try to achieve blood pressures that are lower than your goal listed above (on the left). Lifestyle < 7.0 Diabetes Diabetes mellitus 5.6 (03/25/2018 Sabine Lyon, type 2 in nonobese 8:30 AM EST) MD Sandra Note: Diabetes Care Plan According [...] my blood sugar results (including dextrose sticks). [employer] is safe and secure way for you [...] towards quitting. Glycohemoglobin A1c < 7.0 Diabetes 5.6 (03/25/2018 8:30 No Sandra Lyon AM EST) MD Note: This is an individualized treatment (diabetes [...] ongoing basis. documented as of this encounter Procedures Procedure Name Priority Date/Time Associated Diagnosis Comments DIABETES FOOT EXAM Routine 12/11/2018 documented in this encounter Results DIABETES FOOT EXAM (12/11/2018) FOOT EXAM normal [facility] Performing Organization Address City/State/Zipcode Phone Number [facility] [address] [place] [id number] documented in this encounter Visit Diagnoses Diagnosis Diabetes mellitus type 2 in nonobese (HCC) - Primary Type II or unspecified type diabetes mellitus without mention of complication, not stated as uncontrolled Other chest pain documented in this encounter Insurance Payer Benefit Plan / Subscriber ID Effective Dates Phone Address Type Group [employer] COMMERCIAL RADHA BABIN xxxxxxxxxx 2018-Present [employer] [facility] Guarantor Name Account Type Relation to Date of Phone Billing Address Patient Jairo Woodward Personal/Famil 1965 [phone]) [address] [phone] [place], [place] (Work) [address] documented as of this encounter
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
[2019-02-01 17:37] LABS: Rapid Strep Molecular Negative (Negative)
[2019-02-01 17:44] LABS: Influenza A Molecular NEGATIVE (Negative); Influenza B Molecular NEGATIVE (Negative)
[2019-02-01 18:37] VITALS: BP 138/84
== END 2019-02-01 18:36 | disposition home or self-care (01) ==
LOC: ED 16:58
DX: J40 Bronchitis, not specified as acute or chronic (principal); E11.9 Type 2 diabetes mellitus without complications; I10 Essential (primary) hypertension; Z79.84 Long term (current) use of oral hypoglycemic drugs; Z79.899 Other long term (current) drug therapy
CPT/HCPCS: 87651; 99282